=== PATIENT | female | born 1950 | race Caucasian/White ===

== ENCOUNTER 2020-09-14 09:36 | Day surgery (SDC) | payer MEDICARE ==
[2020-09-14] MEDS ORDERED: Midazolam 1 MG/ML 2 ML SDV IV ONE (09:37)
[2020-09-14] MEDS ORDERED: Rocuronium 50 MG/5 ML Vial IV ONE (09:37)
[2020-09-14] MEDS ORDERED: fentaNYL 100 MCG/2 ML SDV IV ONE (09:37)
[2020-09-14] MEDS ORDERED: Lactated Ringers 1,000 ML IV ONE (09:37)
[2020-09-14] MEDS ORDERED: Ondansetron 4 MG/2 ML SDV IVPUSH ONE (09:37)
[2020-09-14] MEDS ORDERED: Propofol 200 MG/20 ML SDV IV ONE (09:37)
[2020-09-14] MEDS ORDERED: Lidocaine 2% 100 MG/5 ML Syringe IVPUSH ONE (09:37)
[2020-09-14] MEDS ORDERED: Lactated Ringers 1,000 ML IV SCH (09:45)
[2020-09-14] MEDS ORDERED: Sodium Chloride 0.9% 10 ML Syringe FLUSH PRN (09:45)
[2020-09-14] MEDS ORDERED: Bupivacaine 0.25% 30 ML SDV INJECT ONE (12:20)
[2020-09-14] MEDS ORDERED: Lidocaine 1% with EPINEPHrine 1:100,000 20 ML MDV INJECT ONE (12:20)
--- NOTE | 2020-09-14 13:00 | PCM.OPNOTE ---
- General Post-Op/Procedure Note Date of Surgery/Procedure: 09/14/20 Operative Procedure(s): Excision L Axillary Lipoma Findings: 8 cm Lipoma Pre Op Diagnosis: L Axillary Lipoma Post-Op Diagnosis: Same Anesthesia Technique: General ET Tube, Local Primary Surgeon: Bob Felix Anesthesia Provider: Brook Newby Pathology: L axillary mass EBL in mLs: 5 Complications: None Condition: Good
--- NOTE | 2020-09-15 07:32 | OR ---
DATE OF OPERATION: 09/14/2020 SURGEON: Bob Felix MD PREOPERATIVE DIAGNOSIS: Left axillary mass. POSTOPERATIVE DIAGNOSIS: Left axillary mass. PROCEDURE: Excision of left axillary mass. ANESTHESIA: Local and general. DESCRIPTION OF PROCEDURE: The patient was brought to the operating room where general endotracheal anesthesia was administered. The patient was rolled onto her right side and padded and positioned with her left arm up and extended to provide access to the posterior axillary region and lateral left back region. This area was prepped with Betadine and draped sterilely. A 50:50 mixture of 1% Lidocaine with Epinephrine and 0.25% Marcaine were used to infiltrate the area. A skin incision was made over the mass and skin flaps were raised circumferentially with finger dissection and electrocautery to divide any connective tissue. After the superior portion of the mass was free, I was able to get it mostly through the incision, so just the bottom part was connected. This was mostly avascular connective tissue other than 2 small vessels in the base which were clamped and tied with 3-0 Vicryl. The specimen is consistent with lipoma. This appears to be completely removed. Subcutaneous space was closed with interrupted 3-0 Vicryl. Skin was closed with a running 4-0 Vicryl subcuticular suture. Benzoin and Steri-Strips were placed and a sterile dressing applied. The patient tolerated the procedure well. Estimated blood loss less than 5 mL. She returned to postanesthesia in stable condition. /[id number] UZMA/CORDELL
== END 2020-09-14 13:50 | disposition home or self-care (01) ==
LOC: FB.SDS 09:36
PROVIDERS: ATTEND Surgery
DX: D17.22 Benign lipomatous neoplasm of skin and subcutaneous tissue of left arm (principal); F17.210 Nicotine dependence, cigarettes, uncomplicated; Z79.82 Long term (current) use of aspirin; Z79.899 Other long term (current) drug therapy
CPT/HCPCS: 01610-QZ; 88305; J2250; J2405; J2704; J3010; J3490; J7120